=== PATIENT | male | born 1980 | race Caucasian/White ===

== ENCOUNTER 2021-06-30 23:41 | Emergency (ER) | payer MEDICARE, MEDICAID, SELFPAY ==
[2021-06-30 23:42] VITALS: BP 141/93; PULSE 102; RESP 18; TEMP 37; O2SAT 98
--- NOTE | 2021-07-01 00:26 | ED_ITS ---
HPI - General Adult General Chief complaint: Anxiety Stated complaint: anxiety Time Seen by Provider: 06/30/21 23:51 History of Present Illness HPI narrative: Patient 40-year-old gentleman who presents to emergency department chief complaint of anxiety. Patient has history of PTSD does see a counselor states that he has been under more stress lately was seen at [facility] given a dose of Ativan and Benadryl the patient states that today he felt more anxious states he is not suicidal not directly homicidal patient states he did have a couple of drinks but states he is not overly intoxicated at this time. Related Data Allergies Allergy/AdvReac Type Severity Reaction Status Date / Time sertraline [From Zoloft] AdvReac Agitated Verified 06/30/21 23:54 Review of Systems Review of Systems: A 10 system review of systems was completed on the patient and is negative except for what is stated in the HPI. Nursing and ancillary documentation was reviewed. PMFSH Social History Social History Substance use type: crack/cocaine Exam Narrative: GENERAL: Well-appearing, well-nourished, and in no acute distress. HEAD: Normocephalic, atraumatic. EYES: PERRLA and EOMI. ENT: Nares clear, no rhinorrhea or epistaxis. Mucous membranes moist. NECK: Supple. CHEST: Clear to auscultation. No respiratory distress. HEART: Regular rate and rhythm. No murmur heard. Normal peripheral pulses. ABDOMEN: Soft, nontender, nondistended, normal active bowel sounds. EXTREMITIES: Normal range of motion. No edema. SKIN: Warm, dry, no rash. NEURO: No focal deficits. Alert and oriented x3. PSYCH: Normal mood and affect. Denies suicidal or homicidal ideation Course Course Emergency Course: The patient currently is not suicidal or homicidal reports that at this time. He does not want to stay and feels okay wants to follow-up with his therapist. Vital Signs Vital signs: Vital Signs Temperature 37.0 C 06/30/21 23:42 Pulse Rate 102 H 06/30/21 23:42 Respiratory Rate 18 06/30/21 23:42 Blood Pressure 141/93 H 06/30/21 23:42 Pulse Oximetry 98 06/30/21 23:42 Temperature 37.0 C 06/30/21 23:42 Pulse Rate 102 H 06/30/21 23:42 Respiratory Rate 18 06/30/21 23:42 Blood Pressure 141/93 H 06/30/21 23:42 Pulse Oximetry 98 06/30/21 23:42 Medical Decision Making Vital Signs Vital Signs: Vital Signs Temperature 37.0 C 06/30/21 23:42 Pulse Rate 102 H 06/30/21 23:42 Respiratory Rate 18 06/30/21 23:42 Blood Pressure 141/93 H 06/30/21 23:42 Pulse Oximetry 98 06/30/21 23:42 Temperature 37.0 C 06/30/21 23:42 Pulse Rate 102 H 06/30/21 23:42 Respiratory Rate 18 06/30/21 23:42 Blood Pressure 141/93 H 06/30/21 23:42 Pulse Oximetry 98 06/30/21 23:42 Discharge Plan Discharge Clinical Impression: Acute anxiety Patient Disposition: Home, Self-Care Condition: Stable Instructions: Antibiotic Form, Anxiety (ED) Follow-up/Referrals: PHYSICIAN NOT ON STAFF,NONSTAFF [Primary Care Provider] - Time of Disposition: 00:28
== END 2021-07-01 00:39 | disposition home or self-care (01) ==
PROVIDERS: Emergency Provider Emergency Medicine
DX: F41.9 Anxiety disorder, unspecified (principal); F43.10 Post-traumatic stress disorder, unspecified
CPT/HCPCS: 99281